=== PATIENT | female | born 1960 | race Caucasian/White ===

== ENCOUNTER 2021-09-11 11:36 | Emergency (ER) | payer OTHER, SELFPAY ==
[2021-09-11 11:49] VITALS: BP 182/90; PULSE 83; RESP 16; TEMP 36.3; O2SAT 97; BMI 31.1
[2021-09-11] MEDS: ACETAMINOPHEN 325 MG TABLET 650 MG PO (11:58)
[2021-09-11 12:24] VITALS: BP 123/62; PULSE 64; RESP 18; O2SAT 98
[2021-09-11 13:05] VITALS: BP 101/72; PULSE 81; RESP 18; O2SAT 98
--- NOTE | 2021-09-11 13:29 | DI.CT.S_ITS ---
PROCEDURE: CT THORACIC SPINE WO CON INDICATIONS: Fall/injury TECHNIQUE: Noncontrast 3 mm thick sections acquired through the region of interest in the thoracic spine. Sagittal and coronal reformats were then constructed. For radiation dose reduction, the following was used: automated exposure control. COMPARISON: None. FINDINGS: Image quality: Excellent. Bones: There is normal overall bony alignment. Mild loss of anterior height noted in the T3 and T4 vertebral bodies compatible with compression fractures of indeterminate age. The T3 compression fracture results in approximately 20% loss of normal anterior vertebral body height. The T4 compression fracture results in approximately 10% loss of normal anterior vertebral body height. No retropulsed fragments are kyphosis associated with the T3 or T4 compression fractures. No suspicious sclerotic or lytic bony lesions. Central spinal canal is of normal overall caliber. Mild degenerative disc changes noted throughout the thoracic spine. Mild facet hypertrophy noted in the upper thoracic spine. Soft tissues: No paravertebral masses or hematomas. Visualized posteromedial lungs appear clear. IMPRESSION: Mild T3 and T4 anterior column compression fractures of indeterminate age. Dictated by: Ambreen Lenz MD, PhD on 09/11/2021 at 14:32 Approved by: Ambreen Lenz MD, PhD on 09/11/2021 at 14:36
--- NOTE | 2021-09-11 13:29 | DI.CT.S_ITS ---
PROCEDURE: CT CERVICAL SPINE WO CON INDICATIONS: Fall/injury TECHNIQUE: Noncontrast 3 mm thick sections acquired from the skull base to the T4 level. Sagittal and coronal reformats were then constructed. For radiation dose reduction, the following was used: automated exposure control, adjustment of mA and/or kV according to patient size. COMPARISON: None. FINDINGS: Image quality: Excellent. Bones: No fractures or dislocations. Visualized superior ribs are intact. Spine degenerative disc disease and facet arthropathy. Soft tissues: Prevertebral soft tissues are normal in thickness. No paravertebral hematomas. No apical pneumothoraces. IMPRESSION: No fracture. No acute osseous lesion. If symptoms and/or clinical suspicion for pathology persists, evaluation with MRI should be considered for further assessment. Dictated by: Ambreen Lenz MD, PhD on 09/11/2021 at 14:25 Approved by: Ambreen Lenz MD, PhD on 09/11/2021 at 14:31
--- NOTE | 2021-09-11 13:29 | DI.CT.S_ITS ---
PROCEDURE: CT HEAD/BRAIN WO CON INDICATIONS: Fall/injury TECHNIQUE: Noncontrast 4.5 mm thick angled axial sections acquired from the foramen magnum to the vertex, with coronal and sagittal reformats. For radiation dose reduction, the following was used: automated exposure control, adjustment of mA and/or kV according to patient size. COMPARISON: None. FINDINGS: Image quality: Excellent. CSF spaces: Basal cisterns are patent. No extra-axial fluid collections. Ventricles are normal in size and shape. Brain: No midline shift. No intracranial masses or hemorrhage. Ahn-white matter interface is normal. Skull and face: Calvarium and visualized facial bones are intact, without suspicious lesions. Sinuses: Visualized sinuses and mastoids are clear. IMPRESSION: No acute intracranial disease process. Dictated by: Ambreen Lenz MD, PhD on 09/11/2021 at 14:23 Approved by: Ambreen Lenz MD, PhD on 09/11/2021 at 14:24
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
[2021-09-11 14:03] VITALS: BP 142/70; PULSE 58; RESP 18; O2SAT 99
[2021-09-11] MEDS: IBUPROFEN 400 MG TABLET 800 MG PO (15:24)
[2021-09-11] MEDS: LIDOCAINE PATCH 1 EACH ADH..PATCH TOP (15:24)
[2021-09-11 15:55] VITALS: BP 140/74; PULSE 75; RESP 18; O2SAT 99
== END 2021-09-11 15:55 | disposition home or self-care (01) ==
PROVIDERS: Emergency Provider Emergency Medicine
DX: S22.030A Wedge compression fracture of third thoracic vertebra, initial encounter for closed fracture (principal); S22.040A Wedge compression fracture of fourth thoracic vertebra, initial encounter for closed fracture; S00.03XA Contusion of scalp, initial encounter; W06.XXXA Fall from bed, initial encounter; Y93.89 Activity, other specified
CPT/HCPCS: 70450; 72125; 72128; 99284